=== PATIENT | female | born 1930 | race Caucasian/White ===

== ENCOUNTER 2017-07-05 12:59 | Emergency (ER) | payer MEDICARE, BC ==
[~2017-07-05] VITALS: Ht 162.6 cm; Wt 63.6 kg
[2017-07-05 13:15] LABS: BASOPHILS % (AUTO) 0.5 % (0-1); EOSINOPHILS # (AUTO) 0.3 X10'3 (0-0.9); EOSINOPHILS % (AUTO) 3.9 % (0-6); HEMATOCRIT 42.1 % (35.0-45.0); HEMOGLOBIN 14.3 g/dl (12.0-16.0); LYMPHOCYTES # (AUTO) 1.4 X10'3 (1.1-4.8); LYMPHOCYTES % (AUTO) 16.8 % (21-51); MEAN CORPUSCULAR HGB CONC 33.9 % (33.0-36.5); MEAN CORPUSCULAR VOLUME 94.2 FL (78-98); MEAN PLATELET VOLUME 8.4 FL (7.4-10.4); MONOCYTES # (AUTO) 0.5 X10'3 (0-0.9); MONOCYTES % (AUTO) 6.2 % (2-12); NEUTROPHILS # (AUTO) 6.2 X10'3 (1.8-7.7); NEUTROPHILS % (AUTO) 72.6 % (42-75); PLATELET COUNT 319 X10'3 (140-440); RED BLOOD COUNT 4.47 X10'6 (4.20-5.60); RED CELL DISTRIBUTION WIDTH 14.8 % (11.5-14.5); WHITE BLOOD COUNT 8.5 X10'3 (4.5-11.0)
[2017-07-05] MEDS ORDERED: normal saline 1000ML IV soln IVB ONE (13:20)
[2017-07-05 13:25] LABS: INR 0.9 INR; PARTIAL THROMBOPLASTIN TIME 25 SECONDS (22-32); PROTHROMBIN TIME 9.8 SECONDS (9.0-12.0)
[2017-07-05 13:32] LABS: ALANINE AMINOTRANSFERASE 29 U/L (12-78); ALBUMIN 3.2 G/DL (3.4-5.0); ALBUMIN/GLOBULIN RATIO 0.8 (1.1-1.5); ALKALINE PHOSPHATASE 79 IU/L (46-116); ANION GAP 8 (8-16); ASPARTATE AMINO TRANSFERASE 23 U/L (10-37); BILIRUBIN,TOTAL 0.4 MG/DL (0.1-1.0); BLOOD UREA NITROGEN 23 MG/DL (7-18); BUN/CREATININE RATIO 25.6 (6.6-38.0); CALCIUM 9.3 MG/DL (8.5-10.1); CHLORIDE 107 MMOL/L (99-107); GLUCOSE 134 MG/DL (70-104); POTASSIUM 4.2 MMOL/L (3.5-5.1); SODIUM 143 MMOL/L (135-145); TOTAL CARBON DIOXIDE 28.4 MMOL/L (24-32); TROPONIN I < 0.04 NG/ML (0.0-0.05); eGFR 59 ML/MIN
[2017-07-05] MEDS ORDERED: LEVE750T PO (15:25)
[2017-07-05] MEDS ORDERED: LEVE750T6 PO (15:25)
[2017-07-05] MEDS ORDERED: PANT40TA4 PO (15:25)
[2017-07-05] MEDS ORDERED: ASPI-1265 PO (15:25)
[2017-07-05] MEDS ORDERED: CITA20TA11 PO (15:25)
[2017-07-05] MEDS ORDERED: DOCU-261 (15:27)
[2017-07-05] MEDS ORDERED: ATOR20TA PO (15:27)
[2017-07-05 15:29] LABS: CLARITY,URINE CLOUDY (Clear); COLOR,URINE YELLOW (Yellow); GLUCOSE, URINE NEGATIVE (Neg); KETONES,URINE NEGATIVE (Neg); LEUKOCYTE ESTERASE ,URINE NEGATIVE (Neg); NITRITES, URINE NEGATIVE (Neg); OCCULT BLOOD,URINE NEGATIVE (Neg); PROTEIN,URINE NEGATIVE (Neg); UROBILINOGEN,URINE 0.2 E.U/dL (0.2-1.0)
[2017-07-05 15:34] LABS: UA COLLECTION TYPE STRAIGHT CATH
[2017-07-05 15:35] LABS: BACTERIA,URINE 4+ /HPF (Neg); MUCUS STRANDS NONE SEEN /LPF (Neg); RBC,URINE NONE SEEN /HPF (0-2); SQUAMOUS EPITHELIAL CELL,UR NONE SEEN /LPF (FEW)
[2017-07-05] MEDS ORDERED: NITR100C6 PO (15:51)
[2017-07-05 16:09] VITALS: BP 156/75
== END 2017-07-05 16:10 | disposition home or self-care (01) ==
LOC: ER 12:59
DX: R53.1 Weakness (principal); N39.0 Urinary tract infection, site not specified; R55 Syncope and collapse; E78.00 Pure hypercholesterolemia, unspecified; Z60.2 Problems related to living alone; Z79.82 Long term (current) use of aspirin
CPT/HCPCS: 36415; 70450; 71045; 80053; 81001; 82948; 84484; 85025; 85610; 85730; 93005; 96360; 99285; A4315; J7030